=== PATIENT | female | born 1975 | race Caucasian/White ===

== ENCOUNTER 2024-12-25 12:50 | Inpatient (IN) | payer BC, MEDICARE ==
[~2024-12-25] VITALS: Ht 162.6 cm; Wt 82.9 kg
[2024-12-25] MEDS ORDERED: loperamide 2mg capsule PO PRN (15:30)
[2024-12-25] MEDS ORDERED: magnesium hydroxide 30ml (MOM) UD suspension PO PRN (15:30)
[2024-12-25] MEDS ORDERED: acetaminophen 325mg tablet PO PRN (15:30)
[2024-12-25 16:50] VITALS: BP 150/104; PULSE 95; RESP 16; TEMP 98.2; O2SAT 98
[2024-12-25] MEDS ORDERED: CLON0.2T PO (17:24)
[2024-12-25] MEDS ORDERED: AMPH10CA3 PO (17:24)
[2024-12-25] MEDS ORDERED: DIPH25CA83 PO (17:24)
[2024-12-25] MEDS ORDERED: CHOL200080 PO (17:24)
[2024-12-25] MEDS ORDERED: ZIPR20CA12 PO (17:24)
[2024-12-25] MEDS ORDERED: ESZO3TAB66 PO (17:24)
[2024-12-25] MEDS ORDERED: ONDA-243 PO (17:24)
[2024-12-25] MEDS ORDERED: MELA5CAP PO (17:24)
[2024-12-25] MEDS ORDERED: CLON2TAB45 PO (17:24)
[2024-12-25] MEDS ORDERED: CALC-97 PO (17:24)
[2024-12-25 17:51] VITALS: RESP 16; O2SAT 98
[2024-12-25 19:00] VITALS: RESP 18; O2SAT 98
[2024-12-25 19:55] VITALS: BP 167/96; PULSE 105; RESP 18; TEMP 97.3; O2SAT 98
[2024-12-25] MEDS ORDERED: diphenhydrAMINE 25mg capsule PO PRN (22:00)
[2024-12-25] MEDS ORDERED: Melatonin 3mg tablet PO PRN (22:00)
[2024-12-25] MEDS ORDERED: ESZO2TAB31 PO (22:04)
[2024-12-25] MEDS ORDERED: CLON0.1T PO (22:04)
[2024-12-25] MEDS: ziprasidone 20mg capsule PO SCH (22:27)
[2024-12-25] MEDS: ondansetron 4mg rapidly disintigrating tab PO PRN (22:27)
[2024-12-25] MEDS: cloNIDine 0.1 mg tablet PO SCH (22:27)
[2024-12-25] MEDS: zolpidem 5mg tablet PO SCH (22:27)
[2024-12-25] MEDS: acetaminophen 325mg tablet PO PRN (22:28)
[2024-12-26 07:00] VITALS: BP 120/65; PULSE 96; RESP 18; TEMP 97.9; O2SAT 99
[2024-12-26] MEDS ORDERED: AMPHETAMINE PO SCH (08:00)
[2024-12-26] MEDS ORDERED: DEXTROAMPHETAMINE PO SCH (08:00)
[2024-12-26] MEDS: calcium carbonate/vitamin D3 tablet PO SCH (08:27)
[2024-12-26] MEDS: cholecalciferol (vitamin D3) 1,000 unit (25mcg) tablet PO SCH (08:28)
[2024-12-26 10:08] LABS: THYROID STIMULATING HORMONE 2.36 ulU/ml (0.34-4.50)
[2024-12-26 10:29] LABS: HEMOGLOBIN A1C 5.3 % (4.5-6.2)
[2024-12-26] MEDS ORDERED: DESV100T3 PO (11:44)
[2024-12-26] MEDS ORDERED: SUMAtriptan 25 MG tablet PO PRN (15:50)
[2024-12-26] MEDS: aspirin/acetaminophen/caffeine tablet PO PRN (15:59)
[2024-12-26] MEDS: LORazepam 0.5 MG tablet PO ONE (16:02)
[2024-12-26] MEDS: clonazePAM 1mg tablet PO PRN (18:59)
[2024-12-26 19:00] VITALS: RESP 16
[2024-12-26 19:18] VITALS: BP 141/95; PULSE 77; RESP 16; TEMP 97.4; O2SAT 99
[2024-12-26] MEDS: mag hydrox/Alum hydrox/simeth 30ml oral suspension PO PRN (20:59)
[2024-12-26] MEDS: butalbital 50MG/acetaminophen 300MG/caffeine 40MG (Fioricet) CAPSULE PO SCH (21:11)
[2024-12-27 08:00] VITALS: BP 116/61; PULSE 88; RESP 12; TEMP 97.9; O2SAT 97
[2024-12-27] MEDS ORDERED: ESCITALOPRAM 10 mg tablet 10 MG TABLET PO SCH (08:00)
[2024-12-27] MEDS: AMPHETAMINE PO SCH (08:58)
[2024-12-27] MEDS: DEXTROAMPHETAMINE PO SCH (08:58)
[2024-12-27] MEDS: DESVENLAFAXINE SUCCINATE 100 MG PO SCH (08:59)
[2024-12-27 19:00] VITALS: RESP 18; O2SAT 100
[2024-12-27 20:00] VITALS: BP 149/87; PULSE 103; RESP 18; TEMP 97.7; O2SAT 100
[2024-12-28 07:30] VITALS: BP 102/68; PULSE 94; RESP 16; TEMP 97.5; O2SAT 97
== END 2024-12-28 14:31 | disposition home or self-care (01) | DRG 881 ==
LOC: UNDOADMIN 12:50 → ADULT MH 12:50
PROVIDERS: ADMIT Psychiatry & Neurology Psychiatry; ATTEND Psychiatry & Neurology Psychiatry
PROC: GZHZZZZ Group Psychotherapy (ICD-10-PCS; principal; 2024-12-26)
PROC: GZ51ZZZ Individual Psychotherapy, Behavioral (ICD-10-PCS; 2024-12-26)
DX: F32.A Depression, unspecified (principal); F41.9 Anxiety disorder, unspecified; E21.3 Hyperparathyroidism, unspecified; E03.9 Hypothyroidism, unspecified; G43.909 Migraine, unspecified, not intractable, without status migrainosus; F43.10 Post-traumatic stress disorder, unspecified; Z88.5 Allergy status to narcotic agent
CPT/HCPCS: 36415; 83036; 84443; 87081

== ENCOUNTER 2025-02-03 19:25 | Emergency (ER) | payer BC, MEDICARE ==
[~2025-02-03] VITALS: Ht 162.6 cm; Wt 80.5 kg
[~2025-02-03 19:25] MED LIST: AMPH10CA3 PO; CALC-97 PO; CHOL200080 PO; CLON0.1T PO; CLON2TAB45 PO; DESV100T3 PO; DIPH25CA83 PO; ESZO2TAB31 PO; MELA5CAP PO; ONDA-243 PO; ZIPR20CA12 PO
[2025-02-03 20:09] LABS: BASOPHILS # (AUTO) 0.1 X10'3 (0-0.2); BASOPHILS % (AUTO) 0.6 % (0-1); EOSINOPHILS # (AUTO) 0.2 X10'3 (0-0.9); EOSINOPHILS % (AUTO) 1.7 % (0-6); HEMATOCRIT 39.3 % (35.0-45.0); HEMOGLOBIN 12.8 g/dl (12.0-16.0); LYMPHOCYTES # (AUTO) 2.3 X10'3 (1.1-4.8); LYMPHOCYTES % (AUTO) 16.1 % (21-51); MEAN CORPUSCULAR HEMOGLOBIN 27.5 PG (27.0-31.0); MEAN CORPUSCULAR HGB CONC 32.4 g/dL (33.0-36.5); MEAN CORPUSCULAR VOLUME 84.8 FL (78-98); MEAN PLATELET VOLUME 7.7 FL (7.4-10.4); MONOCYTES # (AUTO) 0.9 X10'3 (0-0.9); MONOCYTES % (AUTO) 6.4 % (2-12); NEUTROPHILS # (AUTO) 10.7 X10'3 (1.8-7.7); NEUTROPHILS % (AUTO) 75.2 % (42-75); PLATELET COUNT 394 X10'3 (140-440); RED BLOOD COUNT 4.64 X10'6 (4.20-5.60); RED CELL DISTRIBUTION WIDTH 15.6 % (11.5-14.5); WHITE BLOOD COUNT 14.2 X10'3 (4.5-11.0)
[2025-02-03 20:17] LABS: APTT 30 SECONDS (22-32); PROTHROMBIN TIME 10.9 SECONDS (9.0-12.0)
[2025-02-03] MEDS: normal saline 1000ml 1,000 ML IV ONE (20:20)
[2025-02-03 22:35] LABS: ALANINE AMINOTRANSFERASE 21 U/L (12-78); ALBUMIN 3.3 G/DL (3.4-5.0); ALBUMIN/GLOBULIN RATIO 0.9 (1.1-1.5); ALKALINE PHOSPHATASE 108 IU/L (46-116); ANION GAP 11 (8-16); ASPARTATE AMINO TRANSFERASE 21 U/L (10-37); BILIRUBIN,TOTAL 0.2 MG/DL (0.1-1.0); BLOOD UREA NITROGEN 7 MG/DL (7-18); CALCIUM 8.6 MG/DL (8.5-10.1); CHLORIDE 104 MMOL/L (99-107); CREATINE KINASE 113 U/L (26-192); GLUCOSE 106 MG/DL (70-104); LIPASE 29 U/L (16-77); POTASSIUM 4.5 MMOL/L (3.5-5.1); SODIUM 139 MMOL/L (135-145); THYROID STIMULATING HORMONE 4.07 ulU/ml (0.34-4.50); TOTAL CARBON DIOXIDE 23.7 MMOL/L (24-32); TOTAL PROTEIN 6.9 G/DL (6.4-8.2); eCRCL 82 ML/MIN; eGFR 88 ML/MIN
[2025-02-03 23:05] LABS: ETHANOL < 10 MG/DL (<10)
[2025-02-03 23:17] LABS: BILIRUBIN,URINE NEGATIVE (Neg); CLARITY,URINE CLOUDY (Clear); COLOR,URINE YELLOW (Yellow); GLUCOSE, URINE NEGATIVE (Neg); KETONES,URINE NEGATIVE (Neg); LEUKOCYTE ESTERASE ,URINE NEGATIVE (Neg); NITRITES, URINE NEGATIVE (Neg); OCCULT BLOOD,URINE NEGATIVE (Neg); PROTEIN,URINE NEGATIVE (Neg); UROBILINOGEN,URINE 0.2 E.U/dL (0.2-1.0)
[2025-02-03 23:30] LABS: UA COLLECTION TYPE VOIDED
[2025-02-03 23:31] LABS: BACTERIA,URINE FEW /HPF (Neg); RBC,URINE NONE SEEN /HPF (0-2); SQUAMOUS EPITHELIAL CELL,UR FEW /LPF (FEW); WBC,URINE 0-4 /HPF (0-4)
[2025-02-03 23:32] LABS: AMORPHOUS PHOSPHATES 1+
[2025-02-03 23:35] LABS: SALICYLATE 1.8 MG/DL (4.0-20.0)
[2025-02-03 23:42] LABS: ACETAMINOPHEN < 2.0 UG/ML (10-30)
[2025-02-03 23:42] LABS: URINE AMPHETAMINE SCREEN NEGATIVE (Neg); URINE BARBITUATE SCREEN NEGATIVE (Neg); URINE BENZODIAZEPINES SCREEN POSITIVE (Neg); URINE CANNABINOID SCREEN NEGATIVE (Neg); URINE COCAINE SCREEN NEGATIVE (Neg); URINE METHADONE SCREEN NEGATIVE (Neg); URINE OPIATE SCREEN NEGATIVE (Neg); URINE PHENCYCLIDINE SCREEN NEGATIVE (Neg)
[2025-02-04] MEDS ORDERED: ondansetron 4mg rapidly disintigrating tab PO PRN (22:45)
[2025-02-04] MEDS: zolpidem 5mg tablet PO SCH (23:27)
[2025-02-05] MEDS: diphenhydrAMINE 25mg capsule PO PRN (00:10)
[2025-02-05] MEDS: clonazePAM 1mg tablet PO PRN (00:10)
[2025-02-05] MEDS: Melatonin 3mg tablet PO PRN (00:10)
[2025-02-05] MEDS: ziprasidone 20mg capsule PO SCH (00:11)
[2025-02-05] MEDS: cloNIDine 0.1 mg tablet PO SCH (00:15)
[2025-02-05] MEDS: calcium carbonate/vitamin D3 tablet PO SCH (07:21)
[2025-02-05] MEDS: cholecalciferol (vitamin D3) 1,000 unit (25mcg) tablet PO SCH (07:21)
[2025-02-05 12:34] VITALS: BP 98/67; PULSE 81; RESP 14; TEMP 97.7; O2SAT 94
== END 2025-02-05 12:15 | disposition home or self-care (01) ==
LOC: ER 19:26
DX: T42.4X1A Poisoning by benzodiazepines, accidental (unintentional), initial encounter (principal); T46.5X1A Poisoning by other antihypertensive drugs, accidental (unintentional), initial encounter; F32.A Depression, unspecified; Z88.5 Allergy status to narcotic agent; Z79.899 Other long term (current) drug therapy; Z20.822 Contact with and (suspected) exposure to COVID-19; Y92.89 Other specified places as the place of occurrence of the external cause
CPT/HCPCS: 36415; 80053; 80305; 80320; 80329; 81001; 82550; 83690; 83735; 84100; 84443; 84484; 85025; 85610; 85730; 87502; 87503; 87811; 93005; 96360; 99285; J7030; Q0163